=== PATIENT | male | born 1945 | race Caucasian/White ===

== ENCOUNTER 2019-05-08 21:05 | Observation (INO) | payer MEDICARE, MEDICAID ==
[~2019-05-08] VITALS: Ht 172.7 cm; Wt 81.0 kg
[~2019-05-08 21:05] MED LIST: CLOP75TA15 PO; DILT360C29 PO; FENO135C PO; HYDR-4383 PO; ISOS30TA6 PO; LEVO50TA PO; LORA-660 PO; LOSA50TA3 PO; MSC30T PO; NITR0.4T48 SL; PANT40SU2 PO; ROSU20TA2 PO; SERT100T PO; TEMA15CA5 PO
--- NOTE | 2019-05-08 21:19 | NUR ---
Heparin held at this time pending ptt, Paul BEASLEY
[2019-05-08 21:57] LABS: BASOPHILS % (AUTO) 0.5 % (0-1); EOSINOPHILS % (AUTO) 0.1 % (0-6); HEMATOCRIT 29.6 % (42.0-52.0); HEMOGLOBIN 9.8 g/dl (14.0-17.9); LYMPHOCYTES % (AUTO) 14.5 % (21-51); MEAN CORPUSCULAR HEMOGLOBIN 29.1 PG (27.0-31.0); MEAN CORPUSCULAR VOLUME 88.1 FL (78-98); MEAN PLATELET VOLUME 7.6 FL (7.4-10.4); MONOCYTES # (AUTO) 0.4 X10'3 (0-0.9); MONOCYTES % (AUTO) 5.4 % (2-12); NEUTROPHILS # (AUTO) 5.7 X10'3 (1.8-7.7); NEUTROPHILS % (AUTO) 79.5 % (42-75); PLATELET COUNT 209 X10'3 (140-440); RED BLOOD COUNT 3.35 X10'6 (4.70-6.10); WHITE BLOOD COUNT 7.2 X10'3 (4.5-11.0)
[2019-05-08 22:10] LABS: PARTIAL THROMBOPLASTIN TIME 37 SECONDS (22-32)
[2019-05-08 22:14] LABS: ALANINE AMINOTRANSFERASE 17 U/L (12-78); ALBUMIN 2.6 G/DL (3.4-5.0); ALBUMIN/GLOBULIN RATIO 0.6 (1.1-1.5); ALKALINE PHOSPHATASE 64 IU/L (46-116); ANION GAP 7 (8-16); ASPARTATE AMINO TRANSFERASE 12 U/L (10-37); BILIRUBIN,TOTAL 0.2 MG/DL (0.1-1.0); BLOOD UREA NITROGEN 6 MG/DL (7-18); BUN/CREATININE RATIO 10.2 (5.4-32.0); CALCIUM 8.1 MG/DL (8.5-10.1); CHLORIDE 104 MMOL/L (99-107); CREATININE 0.59 MG/DL (0.60-1.10); GLUCOSE 120 MG/DL (70-104); POTASSIUM 3.1 MMOL/L (3.5-5.1); SODIUM 141 MMOL/L (135-145); TOTAL CARBON DIOXIDE 29.7 MMOL/L (24-32); eGFR > 90 ML/MIN
[2019-05-08] MEDS ORDERED: mag hydrox/Alum hydrox/simeth 30ml oral suspension PO PRN (22:15)
[2019-05-08] MEDS ORDERED: magnesium hydroxide 30ml (MOM) UD suspension PO PRN (22:15)
[2019-05-08] MEDS ORDERED: ondansetron/PF 4mg/2ml inj IV PRN (22:15)
[2019-05-08] MEDS ORDERED: HYDROcodone/acetaminophen 5mg/325mg tablet PO PRN (22:15)
[2019-05-08] MEDS ORDERED: acetaminophen 325mg tablet PO PRN ×2 (22:15)
--- NOTE | 2019-05-08 23:15 | NUR ---
Received report from Carloz URIARTE. PT transferred to ortho floor via [facility].
[2019-05-08 23:30] VITALS: BP 164/71
[2019-05-09] MEDS ORDERED: HYDR-4353 PO (00:32)
[2019-05-09] MEDS ORDERED: CARV-50 PO (01:09)
[2019-05-09] MEDS ORDERED: CARV-49 PO (01:09)
[2019-05-09] MEDS ORDERED: TRAZ-251 PO (01:09)
[2019-05-09] MEDS ORDERED: ATOR40TA PO (01:13)
[2019-05-09] MEDS ORDERED: ASPI-529 (01:13)
[2019-05-09] MEDS ORDERED: potassium CL 10mEq/100ml bag 100 ML IV PRN (01:45)
[2019-05-09] MEDS ORDERED: potassium Cl 20 mEq SR tablet PO PRN ×2 (01:45)
[2019-05-09] MEDS: HYDROcodone/acetaminophen 10/325mg tab PO PRN ×5 (04:37→23:18)
[2019-05-09 04:52] LABS: ALBUMIN 2.6 G/DL (3.4-5.0); ANION GAP 4 (8-16); BLOOD UREA NITROGEN 7 MG/DL (7-18); BUN/CREATININE RATIO 10.8 (5.4-32.0); CALCIUM 8.2 MG/DL (8.5-10.1); CHLORIDE 105 MMOL/L (99-107); CHOL/HDL RATIO 3.3 (0.00-4.99); CHOLESTEROL 131 MG/DL (0-200); CREATININE 0.65 MG/DL (0.60-1.10); GLUCOSE 109 MG/DL (70-104); HDL CHOLESTEROL 40 MG/DL (35-60); LDL CHOLESTEROL 73 MG/DL (50-100); POTASSIUM 3.7 MMOL/L (3.5-5.1); SODIUM 144 MMOL/L (135-145); TOTAL CARBON DIOXIDE 34.9 MMOL/L (24-32); TRIGLYCERIDES 91 MG/DL (20-135); eGFR > 90 ML/MIN
[2019-05-09 06:10] VITALS: BP 160/70
[2019-05-09 09:36] LABS: BASOPHILS % (AUTO) 0.4 % (0-1); EOSINOPHILS % (AUTO) 0.7 % (0-6); HEMATOCRIT 30.5 % (42.0-52.0); HEMOGLOBIN 10.1 g/dl (14.0-17.9); LYMPHOCYTES # (AUTO) 1.1 X10'3 (1.1-4.8); LYMPHOCYTES % (AUTO) 19.5 % (21-51); MEAN CORPUSCULAR HEMOGLOBIN 29.2 PG (27.0-31.0); MEAN CORPUSCULAR HGB CONC 32.9 g/dL (33.0-36.5); MEAN CORPUSCULAR VOLUME 88.8 FL (78-98); MONOCYTES # (AUTO) 0.4 X10'3 (0-0.9); MONOCYTES % (AUTO) 6.7 % (2-12); NEUTROPHILS # (AUTO) 4.1 X10'3 (1.8-7.7); NEUTROPHILS % (AUTO) 72.7 % (42-75); PLATELET COUNT 196 X10'3 (140-440); RED BLOOD COUNT 3.44 X10'6 (4.70-6.10); RED CELL DISTRIBUTION WIDTH 16.2 % (11.5-14.5); WHITE BLOOD COUNT 5.6 X10'3 (4.5-11.0)
[2019-05-09 10:00] VITALS: BP 160/71
[2019-05-09] MEDS ORDERED: nitroGLYCERIN 0.4mg SUBLingual tab SL PRN (11:25)
[2019-05-09] MEDS: sertraline 50mg tablet PO SCH (12:20)
[2019-05-09] MEDS: fenofibrate 145mg tablet PO SCH (12:20)
[2019-05-09] MEDS: morphine 2 MG/ML inj. syringe IV PRN ×2 (12:40→17:25)
--- NOTE | 2019-05-09 12:56 | NUR ---
Ordered 2mg morphine from Dr. Dumont for left arm pain, patient currently refusing stress test again. 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 Dr. Dumont notified.
[2019-05-09 18:00] VITALS: BP 182/76
[2019-05-09] MEDS: enoxaparin 40mg/0.4ml syringe SQ SCH (18:10)
--- NOTE | 2019-05-09 19:00 | NUR ---
Patient in room ORTHO 4015. I have received report from Flaquita URIARTE and had the opportunity to ask questions and assume patient care.
--- NOTE | 2019-05-09 19:00 | NUR ---
I spoke to opal Toscano about high BP he said cont. to monitor and BP meds to be given tonight.
--- NOTE | 2019-05-09 19:00 | NUR ---
patient report given to Jesse
[2019-05-09] MEDS: morphine ER 30mg tablet PO SCH (20:23)
[2019-05-09] MEDS: losartan 50mg tablet PO SCH (20:24)
[2019-05-09] MEDS: carvedilol 6.25mg tablet PO SCH (20:25)
[2019-05-09] MEDS ORDERED: atorvastatin 20mg tablet PO SCH (21:00)
[2019-05-09] MEDS ORDERED: temazepam 15mg capsule PO SCH (21:00)
[2019-05-09] MEDS ORDERED: traZODone 50mg tablet PO SCH (21:00)
[2019-05-09 22:00] VITALS: BP 165/68
[2019-05-10] MEDS: HYDROcodone/acetaminophen 10/325mg tab PO PRN ×3 (04:24→12:27)
[2019-05-10] MEDS: morphine 2 MG/ML inj. syringe IV PRN (05:12)
[2019-05-10 06:10] VITALS: BP 200/84
[2019-05-10 06:56] VITALS: BP 189/90
[2019-05-10] MEDS ORDERED: levoTHYROXINE 25mcg tablet PO SCH (07:00)
[2019-05-10] MEDS ORDERED: pantoprazole 40mg Tablet.DR PO SCH (07:30)
[2019-05-10 07:36] LABS: BASOPHILS % (AUTO) 0.4 % (0-1); EOSINOPHILS # (AUTO) 0.1 X10'3 (0-0.9); EOSINOPHILS % (AUTO) 1.6 % (0-6); HEMATOCRIT 32.3 % (42.0-52.0); HEMOGLOBIN 10.6 g/dl (14.0-17.9); LYMPHOCYTES % (AUTO) 19.7 % (21-51); MEAN CORPUSCULAR HEMOGLOBIN 29.2 PG (27.0-31.0); MEAN CORPUSCULAR HGB CONC 32.9 g/dL (33.0-36.5); MEAN CORPUSCULAR VOLUME 88.9 FL (78-98); MEAN PLATELET VOLUME 8.1 FL (7.4-10.4); MONOCYTES # (AUTO) 0.4 X10'3 (0-0.9); NEUTROPHILS # (AUTO) 3.8 X10'3 (1.8-7.7); NEUTROPHILS % (AUTO) 71.3 % (42-75); PLATELET COUNT 201 X10'3 (140-440); RED BLOOD COUNT 3.63 X10'6 (4.70-6.10); RED CELL DISTRIBUTION WIDTH 16.1 % (11.5-14.5); WHITE BLOOD COUNT 5.3 X10'3 (4.5-11.0)
[2019-05-10 07:41] LABS: ALBUMIN 2.4 G/DL (3.4-5.0); ANION GAP 6 (8-16); BLOOD UREA NITROGEN 9 MG/DL (7-18); BUN/CREATININE RATIO 16.1 (5.4-32.0); CALCIUM 8.2 MG/DL (8.5-10.1); CHLORIDE 104 MMOL/L (99-107); CREATININE 0.56 MG/DL (0.60-1.10); GLUCOSE 103 MG/DL (70-104); POTASSIUM 3.6 MMOL/L (3.5-5.1); SODIUM 142 MMOL/L (135-145); TOTAL CARBON DIOXIDE 31.7 MMOL/L (24-32); eGFR > 90 ML/MIN
[2019-05-10] MEDS ORDERED: clopidogrel 75mg tablet PO SCH (08:00)
[2019-05-10] MEDS ORDERED: loratadine 10mg tablet PO SCH (08:00)
[2019-05-10] MEDS ORDERED: isosorbide mononitrate 30mg tab.SR.24H PO SCH (08:00)
[2019-05-10] MEDS: fenofibrate 145mg tablet PO SCH (08:30)
[2019-05-10] MEDS: losartan 50mg tablet PO SCH (08:30)
[2019-05-10] MEDS: sertraline 50mg tablet PO SCH (08:30)
[2019-05-10] MEDS: carvedilol 6.25mg tablet PO SCH (08:30)
[2019-05-10] MEDS: morphine ER 30mg tablet PO SCH (08:30)
[2019-05-10] MEDS: enoxaparin 40mg/0.4ml syringe SQ SCH (08:31)
[2019-05-10 10:00] VITALS: BP 127/70
--- NOTE | 2019-05-10 14:25 | NUR ---
Patient taught to follow up with pcp and ortho MD. Patient family came to pick him up.
== END 2019-05-10 14:24 | disposition home or self-care (01) ==
LOC: ER 21:05 → ORTHO 4S 22:50
PROVIDERS: ADMIT Hospitalist; ATTEND Hospitalist
DX: M25.512 Pain in left shoulder (principal); I25.10 Atherosclerotic heart disease of native coronary artery without angina pectoris; I11.0 Hypertensive heart disease with heart failure; I50.9 Heart failure, unspecified; I49.1 Atrial premature depolarization; E78.1 Pure hyperglyceridemia; I73.9 Peripheral vascular disease, unspecified; J44.9 Chronic obstructive pulmonary disease, unspecified; I45.81 Long QT syndrome; F32.9 Major depressive disorder, single episode, unspecified; Z86.73 Personal history of transient ischemic attack (TIA), and cerebral infarction without residual deficits; Z87.891 Personal history of nicotine dependence; Z89.612 Acquired absence of left leg above knee; Z95.1 Presence of aortocoronary bypass graft; Z90.49 Acquired absence of other specified parts of digestive tract; Z79.82 Long term (current) use of aspirin; Z79.899 Other long term (current) drug therapy; Z88.0 Allergy status to penicillin; W07.XXXA Fall from chair, initial encounter; Y92.89 Other specified places as the place of occurrence of the external cause
CPT/HCPCS: 36415; 80048; 80053; 80061; 84132; 84484; 85025; 85610; 85730; 87081; 93005; 93306; 96372; 96374; 96376; 97112; 97161; 97530; 99284; G0378; J2270; J1650